=== PATIENT | male | born 1940 | race Caucasian/White ===

== ENCOUNTER 2021-08-30 09:13 | Inpatient (IN) | payer MEDICARE, BC ==
[2021-08-30 10:07] LABS: #Eosinphils 0.4 thou/uL (0.0-0.7); #Lymphocytes 1.3 thou/uL (1.20-3.40); #Monocytes 1.4 thou/uL (0.11-0.59); #Neutrophils 15.2 thou/uL (1.40-6.50); %Basophils 0.2 % (0.0-1.0); %Lymphocytes 7.1 % (21.0-51.0); %Monocytes 7.6 % (0.0-10.0); %Neutrophils 83.1 % (42.0-75.0); Hemoglobin 14.5 g/dL (14.0-18.0); Mean Corpuscular HGB CONC 31.7 g/dL (32.0-36.0); Mean Corpuscular Hemoglobin 32.2 pg (27.0-31.0); Mean Platelet Volume 6.8 fL (7.4-10.4); Platelet Count 377 thou/uL (130-400); RBC Distribution Width 12.1 % (11.5-14.5); White Blood Cell (WBC) Count 18.3 thou/uL (4.8-10.8)
[2021-08-30 10:29] LABS: ALT (SGPT) 47 U/L (8-55); AST (SGOT) 19 U/L (5-34); Alkaline Phosphatase 143 U/L (40-110); Anion Gap 12 mmol/L (10-20); BUN (Urea Nitrogen) 18 mg/dL (8.4-25.7); Bilirubin, Total 0.6 mg/dL (0.2-1.2); CK (CPK) 53 U/L (30-200); Calc. Creatinine Clearance 0 mL/min (70-130); Calcium 9.1 mg/dL (7.8-10.44); Carbon Dioxide 25 mmol/L (23-31); Chloride 107 mmol/L (98-107); Estimated GFR 87; Globulin 3.7 g/dL (2.4-3.5); Glucose 125 mg/dL (83-110); Potassium 4.4 mmol/L (3.5-5.1); Protein, Total 6.7 g/dL (5.8-8.1); Sodium 140 mmol/L (136-145)
[2021-08-30 10:47] LABS: Bilirubin Negative (Negative); Blood, Urine Negative (Negative); Clarity Clear (Clear); Glucose, Urine (Dipstick) Normal (Negative); Ketone, Urine Negative (Negative); Leukocyte Negative Leu/uL (Negative); Nitrite Negative (Negative); Protein, Urine (Dipstick) Negative (Neg-Trace); Specific Gravity, Urine 1.019 (1.002-1.036); Urobilinogen Normal mg/dL (Less than 2); pH, Urine 6.5 (5.0-9.0)
[2021-08-30] MEDS ORDERED: Ondansetron PF 4 MG/2 ML Vial IVP PRN (11:43)
[2021-08-30] MEDS ORDERED: HYDROcodone/Acetaminophen 5/325 mg Tablet PO PRN (11:43)
[2021-08-30] MEDS ORDERED: Bisacodyl 5 MG TAB PO PRN (11:43)
[2021-08-30] MEDS ORDERED: Acetaminophen 325 MG TAB PO PRN (11:43)
[2021-08-30] MEDS ORDERED: Cefepime 2 GM VIAL ONE (11:44)
[2021-08-30] MEDS ORDERED: Lorazepam 2 MG/ML VIAL IM PRN (11:52)
[2021-08-30] MEDS ORDERED: Lorazepam 1 MG TAB PO PRN (11:52)
[2021-08-30] MEDS ORDERED: Ondansetron ODT 4 MG TAB PO PRN (11:52)
[2021-08-30] MEDS ORDERED: Thiamine HCl 200 MG/2 ML VIAL SLOW IVP SCH (12:00)
[2021-08-30] MEDS ORDERED: Electrolyte Replacement Protocol 1 EACH FS SCH (12:00)
[2021-08-30] MEDS ORDERED: Lorazepam 1 MG TAB PO SCH (12:00)
[2021-08-30] MEDS ORDERED: Multivitamins, Adult 10 ML, Folic Acid 1 MG, Thiamine HCl 100 MG in Dextrose 5 %-0.45 %... IV SCH (12:00)
[2021-08-30] MEDS ORDERED: NEED HT/WT FS PRN (12:29)
[2021-08-30] MEDS ORDERED: Vancomycin 1.5 GRAM/300 ML BAG 1.5 GM in Premix Bag 1 BAG IVPB SCH (13:00)
[2021-08-30 13:04] LABS: SARS-CoV-2 NAA Rapid Test Not Detected (NotDetected)
[2021-08-30] MEDS: Sodium Chloride 0.9% 1,000 ML IV SCH (13:44)
[2021-08-30 18:38] VITALS: BMI 36.3
[2021-08-30] MEDS ORDERED: Vancomycin 1 GM in Premix Bag 1 BAG IVPB SCH (21:00)
[2021-08-30] MEDS: Cefepime 1 GM in Sodium Chloride 0.9% 100 ML IVPB SCH (23:19)
[2021-08-31 04:56] LABS: #Eosinphils 0.3 thou/uL (0.0-0.7); #Lymphocytes 1.4 thou/uL (1.20-3.40); #Monocytes 1.3 thou/uL (0.11-0.59); #Neutrophils 11.7 thou/uL (1.40-6.50); %Basophils 0.1 % (0.0-1.0); %Eosinophils 2.1 % (0.0-10.0); %Lymphocytes 9.5 % (21.0-51.0); %Monocytes 8.6 % (0.0-10.0); %Neutrophils 79.7 % (42.0-75.0); Hemoglobin 13.3 g/dL (14.0-18.0); Mean Corpuscular HGB CONC 31.5 g/dL (32.0-36.0); Mean Corpuscular Hemoglobin 32.1 pg (27.0-31.0); Mean Platelet Volume 6.8 fL (7.4-10.4); Platelet Count 367 thou/uL (130-400); RBC Distribution Width 12.1 % (11.5-14.5); Red Blood Cell (RBC) Count 4.14 mill/uL (4.70-6.10); White Blood Cell (WBC) Count 14.6 thou/uL (4.8-10.8)
[2021-08-31 05:06] LABS: Anion Gap 14 mmol/L (10-20); BUN (Urea Nitrogen) 13 mg/dL (8.4-25.7); Calc. Creatinine Clearance 96 mL/min (70-130); Calcium 8.5 mg/dL (7.8-10.44); Carbon Dioxide 24 mmol/L (23-31); Chloride 105 mmol/L (98-107); Estimated GFR 87; Glucose 105 mg/dL (83-110); Potassium 4.1 mmol/L (3.5-5.1); Sodium 139 mmol/L (136-145)
[2021-08-31] MEDS: Sodium Chloride 0.9% 1,000 ML IV SCH ×2 (05:41→17:51)
[2021-08-31] MEDS ORDERED: Folic Acid 1 MG TAB PO SCH (09:00)
[2021-08-31] MEDS ORDERED: Multivit, Therapeutic 1 TAB PO SCH (09:00)
[2021-08-31] MEDS ORDERED: Docusate 100 MG CAP PO PRN (09:45)
[2021-08-31] MEDS ORDERED: levETIRAcetam 500 MG TAB PO SCH (10:45)
[2021-08-31] MEDS ORDERED: Amlodipine 10 MG TAB PO SCH (10:45)
[2021-08-31] MEDS ORDERED: Loratadine 10 MG TAB PO PRN (10:46)
[2021-08-31] MEDS: Enoxaparin Sodium 40 MG/0.4 ML SYRINGE SC SCH (10:49)
[2021-08-31] MEDS: Cefepime 1 GM in Sodium Chloride 0.9% 100 ML IVPB SCH (11:34)
[2021-08-31] MEDS ORDERED: Divalproex Sodium DR 500 MG TAB PO SCH (11:45)
[2021-08-31] MEDS ORDERED: Lorazepam 1 MG TAB PO PRN (11:52)
[2021-08-31] MEDS ORDERED: Cefepime 2 GM in Sodium Chloride 0.9% 100 ML IVPB SCH (12:00)
[2021-08-31] MEDS ORDERED: VANCOMYCIN 2 GRAM/500 ML BAG 2 GM in Premix Bag 1 BAG IVPB SCH (13:00)
[2021-08-31] MEDS ORDERED: traZODone HCl 50 MG TAB PO PRN (21:00)
[2021-08-31] MEDS: Famotidine 20 MG TAB PO SCH (21:26)
[2021-08-31] MEDS: levETIRAcetam 500 MG TAB PO SCH (21:26)
[2021-09-01] MEDS: Cefepime 2 GM in Sodium Chloride 0.9% 100 ML IVPB SCH ×2 (00:24→12:54)
[2021-09-01 06:52] LABS: Free Thyroxine Index 1.87 (1.4-3.1); T4 6.9 ug/dL (4.87-11.72); Thyroid Stimulating Hormone 0.6688 uIU/mL (0.35-4.94)
[2021-09-01] MEDS ORDERED: Magnesium 2 GM/50 ML(in water) 2 GM in Premix Bag 1 BAG IVPB SCH (08:00)
[2021-09-01] MEDS: levETIRAcetam 500 MG TAB PO SCH ×2 (08:58→20:39)
[2021-09-01] MEDS: Aspirin 81 mg Enteric Coated Tablet PO SCH (08:59)
[2021-09-01] MEDS: Citalopram 20 MG TAB PO SCH (08:59)
[2021-09-01] MEDS: Amlodipine 10 MG TAB PO SCH (08:59)
[2021-09-01] MEDS ORDERED: D3 PO SCH (09:00)
[2021-09-01] MEDS ORDERED: CHONDR MSM1 PO SCH (09:00)
[2021-09-01] MEDS ORDERED: [UNRECOGNIZED DRUG - OTHER] PO SCH (09:00)
[2021-09-01] MEDS ORDERED: GLUCOSAM PO SCH (09:00)
[2021-09-01] MEDS ORDERED: Atorvastatin Calcium 40 MG TAB PO SCH (09:00)
[2021-09-01] MEDS ORDERED: MANG PO SCH (09:00)
[2021-09-01] MEDS: Divalproex Sodium DR 500 MG TAB PO SCH (09:02)
[2021-09-01] MEDS: Meloxicam 7.5 MG TAB PO SCH (09:02)
[2021-09-01] MEDS: Enoxaparin Sodium 40 MG/0.4 ML SYRINGE SC SCH (09:04)
[2021-09-01] MEDS: Sodium Chloride 0.9% 1,000 ML IV SCH ×2 (09:16→20:43)
[2021-09-01 09:33] LABS: #Eosinphils 0.4 thou/uL (0.0-0.7); #Lymphocytes 0.9 thou/uL (1.20-3.40); #Monocytes 1.3 thou/uL (0.11-0.59); #Neutrophils 11.5 thou/uL (1.40-6.50); %Basophils 0.3 % (0.0-1.0); %Lymphocytes 6.6 % (21.0-51.0); %Monocytes 8.9 % (0.0-10.0); %Neutrophils 81.3 % (42.0-75.0); Hemoglobin 13.4 g/dL (14.0-18.0); Mean Corpuscular HGB CONC 32.6 g/dL (32.0-36.0); Mean Corpuscular Hemoglobin 32.4 pg (27.0-31.0); Mean Corpuscular Volume 99.3 fL (78.0-98.0); Mean Platelet Volume 6.8 fL (7.4-10.4); Platelet Count 358 thou/uL (130-400); RBC Distribution Width 11.8 % (11.5-14.5); Red Blood Cell (RBC) Count 4.13 mill/uL (4.70-6.10); White Blood Cell (WBC) Count 14.1 thou/uL (4.8-10.8)
[2021-09-01] MEDS: Famotidine 20 MG TAB PO SCH ×2 (11:00→20:39)
[2021-09-01] MEDS ORDERED: Lorazepam 1 MG TAB PO PRN (11:52)
[2021-09-01] MEDS ORDERED: Lorazepam 0.5 MG TAB PO SCH (12:00)
[2021-09-01 12:36] LABS: Vancomycin, Trough 6.9 ug/mL
[2021-09-01] MEDS: VANCOMYCIN 2 GRAM/500 ML BAG 2 GM in Premix Bag 1 BAG IVPB SCH (13:14)
[2021-09-02] MEDS: Cefepime 2 GM in Sodium Chloride 0.9% 100 ML IVPB SCH ×2 (00:53→12:09)
[2021-09-02] MEDS: VANCOMYCIN 2 GRAM/500 ML BAG 2 GM in Premix Bag 1 BAG IVPB SCH (00:53)
[2021-09-02 04:46] LABS: #Basophils 0.1 thou/uL (0.0-0.2); #Eosinphils 0.5 thou/uL (0.0-0.7); #Lymphocytes 1.2 thou/uL (1.20-3.40); #Monocytes 1.2 thou/uL (0.11-0.59); #Neutrophils 9.4 thou/uL (1.40-6.50); %Basophils 0.4 % (0.0-1.0); %Lymphocytes 9.9 % (21.0-51.0); %Monocytes 9.7 % (0.0-10.0); %Neutrophils 76.1 % (42.0-75.0); Hemoglobin 12.7 g/dL (14.0-18.0); Mean Corpuscular HGB CONC 32.7 g/dL (32.0-36.0); Mean Corpuscular Hemoglobin 32.6 pg (27.0-31.0); Mean Corpuscular Volume 99.6 fL (78.0-98.0); Mean Platelet Volume 6.7 fL (7.4-10.4); Platelet Count 351 thou/uL (130-400); RBC Distribution Width 11.7 % (11.5-14.5); White Blood Cell (WBC) Count 12.4 thou/uL (4.8-10.8)
[2021-09-02] MEDS: Enoxaparin Sodium 40 MG/0.4 ML SYRINGE SC SCH (09:03)
[2021-09-02] MEDS: Amlodipine 10 MG TAB PO SCH (09:03)
[2021-09-02] MEDS: Aspirin 81 mg Enteric Coated Tablet PO SCH (09:04)
[2021-09-02] MEDS: Famotidine 20 MG TAB PO SCH (09:04)
[2021-09-02] MEDS: levETIRAcetam 500 MG TAB PO SCH (09:04)
[2021-09-02] MEDS: Meloxicam 7.5 MG TAB PO SCH (09:05)
[2021-09-02] MEDS: Citalopram 20 MG TAB PO SCH (09:05)
[2021-09-02] MEDS: Divalproex Sodium DR 500 MG TAB PO SCH (09:05)
[2021-09-02] MEDS: Sodium Chloride 0.9% 1,000 ML IV SCH (11:13)
[2021-09-02] MEDS ORDERED: Lorazepam 0.5 MG TAB PO PRN (11:52)
[2021-09-02] MEDS ORDERED: Thiamine 100 MG TAB PO SCH (12:00)
[2021-09-02] MEDS ORDERED: VANCOMYCIN 1.75 GM/500 ML BAG 1.75 GM in Premix Bag 1 BAG IVPB SCH (13:00)
[2021-09-02 16:11] VITALS: BP 125/58; TEMP 97.6
== END 2021-09-02 19:50 | DRG 871 ==
LOC: ERS 09:13 → ERHOLD 11:38 → 2NO 17:23
PROVIDERS: ADMIT Internal Medicine; ATTEND Internal Medicine
DX: A41.9 Sepsis, unspecified organism (principal); J18.9 Pneumonia, unspecified organism; J91.8 Pleural effusion in other conditions classified elsewhere; Z20.822 Contact with and (suspected) exposure to COVID-19; I10 Essential (primary) hypertension; I25.10 Atherosclerotic heart disease of native coronary artery without angina pectoris; G40.909 Epilepsy, unspecified, not intractable, without status epilepticus; F03.90 Unspecified dementia, unspecified severity, without behavioral disturbance, psychotic disturbance, mood disturbance, and anxiety; E78.00 Pure hypercholesterolemia, unspecified; J47.9 Bronchiectasis, uncomplicated; Y95 Nosocomial condition; E66.9 Obesity, unspecified; Z68.35 Body mass index [BMI] 35.0-35.9, adult; Z87.820 Personal history of traumatic brain injury; Z88.8 Allergy status to other drugs, medicaments and biological substances; Z98.890 Other specified postprocedural states; Z95.5 Presence of coronary angioplasty implant and graft; Z87.891 Personal history of nicotine dependence; Z79.899 Other long term (current) drug therapy; Z79.1 Long term (current) use of non-steroidal anti-inflammatories (NSAID); Z79.82 Long term (current) use of aspirin
CPT/HCPCS: 36415; 70450; 71045; 80048; 80053; 80202; 81003; 82550; 83605; 83735; 83880; 84145; 84436; 84443; 84479; 84484; 85025; 87040; 93005; 93306; 96365; 96366; 96367; J0692; J1650; J1956; J2405; J3370; J3411; J3475; J3490; J7042; J7050; U0002

== ENCOUNTER 2022-03-28 07:27 | Emergency (ER) | payer OTHER, MEDICARE, BC ==
[2022-03-28] MEDS ORDERED: Lorazepam 1 MG TAB ONE (09:17)
== END 2022-03-28 09:24 ==
LOC: ERS 07:27
DX: S70.01XA Contusion of right hip, initial encounter (principal); E78.00 Pure hypercholesterolemia, unspecified; I10 Essential (primary) hypertension; W17.89XA Other fall from one level to another, initial encounter; Y93.89 Activity, other specified; Y92.89 Other specified places as the place of occurrence of the external cause
CPT/HCPCS: 72170